=== PATIENT | male | born 1990 | race Caucasian/White ===

== ENCOUNTER 2016-04-05 10:04 | Emergency (ER) | payer BC ==
[2016-04-05] MEDS ORDERED: ONDANSETRON 4 MG VIAL ONE (10:40)
[2016-04-05] MEDS ORDERED: KETOROLAC 30 MG/ML VIAL ONE (10:40)
== END 2016-04-05 12:20 | disposition home or self-care (01) ==
LOC: ER 10:04
DX: R10.9 Unspecified abdominal pain (principal); F17.200 Nicotine dependence, unspecified, uncomplicated
CPT/HCPCS: 36415; 74176; 80053; 81001; 83690; 85025; 87088; 87491; 87591; 96374; 96375